=== PATIENT | female | born 1965 | race Caucasian/White ===

== ENCOUNTER 2018-03-28 21:08 | Emergency (ER) | payer OTHER, MEDICAID, SELFPAY ==
[2018-03-28 21:11] VITALS: BP 124/81; PULSE 80; RESP 18; TEMP 36.3; O2SAT 99; BMI 27.8
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
[2018-03-28 22:12] VITALS: BP 133/79; PULSE 79; RESP 16; O2SAT 98
== END 2018-03-28 22:15 | disposition home or self-care (01) ==
PROVIDERS: Emergency Provider Emergency Medicine
DX: S80.12XA Contusion of left lower leg, initial encounter (principal); S16.1XXA Strain of muscle, fascia and tendon at neck level, initial encounter; V43.52XA Car driver injured in collision with other type car in traffic accident, initial encounter; E11.9 Type 2 diabetes mellitus without complications; Z87.891 Personal history of nicotine dependence; Z79.84 Long term (current) use of oral hypoglycemic drugs; Z79.899 Other long term (current) drug therapy; Y93.I9 Activity, other involving external motion; Y92.415 Exit ramp or entrance ramp of street or highway as the place of occurrence of the external cause; Y99.8 Other external cause status
CPT/HCPCS: 99282